=== PATIENT | male | born 1955 | race Caucasian/White ===

== ENCOUNTER 2021-02-04 07:34 | Day surgery (SDC) | payer OTHER ==
[2021-02-01 14:38] VITALS: BMI 38.0
[~2021-02-04 07:34] MED LIST: LACTATED RINGERS 1,000 ML IV SCH
--- NOTE | 2021-02-04 07:36 | P.GSHP ---
History of Present Illness H&P Date: 02/04/21 CHIEF COMPLAINT: GERD and colon screen HISTORY OF PRESENT ILLNESS: The patient is a 65-year-old male who presents with gastroesophageal reflux disease and need for colon screen. Upper and lower endoscopy were offered for further evaluation and management. PAST MEDICAL HISTORY: Please see list. PAST SURGICAL HISTORY: Please see list. MEDICATIONS: Please see list. ALLERGIES: Please see list. SOCIAL HISTORY: No illicit drug use FAMILY HISTORY: No reports of Crohn disease or ulcerative colitis. REVIEW OF ORGAN SYSTEMS: CONSTITUTIONAL: No reports of fevers or chills. GI: Denies any blood in stools or constipation. PHYSICAL EXAM: VITAL SIGNS: Stable GENERAL: Well-developed pleasant in no acute distress. HEENT: No scleral icterus. Extraocular movements grossly intact. Moist buccal mucosa. NECK: Supple without lymphadenopathy. CHEST: Unlabored respirations. Equal bilateral excursions. CARDIOVASCULAR: Regular rate and rhythm. Distal 2+ pulses. ABDOMEN: Soft, nondistended. MUSCULOSKELETAL: No clubbing, cyanosis, or edema. ASSESSMENT: 1. Gastroesophageal reflux disease 2. Colon screen. PLAN: 1. Recommend proceeding with an upper and lower endoscopy Past Medical History Past Medical History: Cancer, Diabetes Mellitus, GERD/Reflux, Hyperlipidemia, Hypertension, Memory Impairment, Neurologic Disorder Additional Past Medical History / Comment(s): NEUROPATHY TO BILAT FEET AND FINGERS. PROSTATE CANCER STAGE IV History of Any Multi-Drug Resistant Organisms: None Reported Past Surgical History: Back Surgery, Hernia Repair Additional Past Surgical History / Comment(s): HIATAL HERNIA REPAIR. EGD/COLONOSCOPOY. VASECTOMY Past Anesthesia/Blood Transfusion Reactions: Motion Sickness Smoking Status: Never smoker - Past Family History Father Family Medical History: Cancer Mother Family Medical History: Cancer Medications and Allergies Home Medications Medication Instructions Recorded Confirmed Type Albuterol Sulfate [Proair 1 puff INHALATION Q6H PRN 02/01/21 02/01/21 History Digihaler] Atorvastatin [Lipitor] 40 mg PO DAILY 02/01/21 02/01/21 History Calcium Carbonate/Vitamin D3 1 each PO DAILY 02/01/21 02/01/21 History [Calcium 500 mg Chewable Tablet] Ferrous Sulfate [Feosol] 325 mg PO DAILY 02/01/21 02/01/21 History Furosemide [Lasix] 20 mg PO DAILY PRN 02/01/21 02/01/21 History Insulin Aspart Protam & Aspart 0 unit SQ DAILY PRN 02/01/21 02/01/21 History [NovoLOG MIX 70-30 Flexpen] Insulin NPH Human Isophane 0 units SQ BID PRN 02/01/21 02/01/21 History [NovoLIN N] Leuprolide Acetate [Lupron Depot] 11.25 mg IM Q90D 02/01/21 02/01/21 History Lisinopril [Prinivil] 10 mg PO DAILY 02/01/21 02/01/21 History Metoprolol Succinate (ER) [Toprol 50 mg PO DAILY 02/01/21 02/01/21 History Xl] Omeprazole [PriLOSEC] 40 mg PO DAILY 02/01/21 02/01/21 History Potassium Chloride -Dose Unknw 1 tab PO BID 02/01/21 History Prochlorperazine [Compazine] 10 mg PO Q6H PRN 02/01/21 02/01/21 History ondansetron HCL [Zofran] 8 mg PO Q12HR PRN 02/01/21 02/01/21 History Allergies Allergy/AdvReac Type Severity Reaction Status Date / Time Penicillins Allergy Unknown Verified 02/01/21 14:34 Childhood ranitidine [From Zantac] Allergy DIZZINESS Verified 02/01/21 14:34
[2021-02-04 07:56] VITALS: TEMP 98
[2021-02-04 08:13] LABS: Glucose,Whole Blood 230 mg/dL (75-99)
[2021-02-04] MEDS ORDERED: LIDOCAINE 1% INJ 10MG/ML (20 ML MDV) ONE (08:30)
[2021-02-04] MEDS ORDERED: MIDAZOLAM 2 MG/2 ML VIAL ONE (08:30)
[2021-02-04] MEDS ORDERED: KETAMINE 10 MG/ML 20 ML VIAL ONE (08:30)
[2021-02-04] MEDS ORDERED: PROPOFOL 10 MG/ML 20 ML VIAL IV ONE (08:30)
--- NOTE | 2021-02-04 09:18 | P.PCN ---
Date of Procedure: 02/04/21 Description of Procedure: PREOPERATIVE DIAGNOSIS: Personal history of colon polyps Family history malignant colon polyps Colonoscopy screening Morbid obesity due to excess calories POSTOPERATIVE DIAGNOSIS: Personal history of colon polyps Family history malignant colon polyps Colonoscopy screening OPERATION: Colonoscopy to the ileocecal valve and appendiceal orifice, cecum Colonoscopy with cold forceps biopsy SURGEON: Ana Laura Taylor MD. ANESTHESIA: MAC. INDICATIONS: The patient is an 65-year-old male who presents family history of malignant colon polyps and personal history of colon polyps. Last over colonoscopy 5 years. Benefits and risks were described and informed consent was obtained. DESCRIPTION OF PROCEDURE: The patient had undergone Gatorade MiraLAX prep. The patient had been brought into the operating room and laid in the left lateral decubitus position. After adequate intravenous sedation, the rectum was examined with 2% lidocaine jelly. The prostate fossa was unremarkable. External hemorrhoids were encountered. The rectal tone was within normal limits. No lesions were palpated in the rectal vault. An Olympus colonoscope was advanced until the cecum, ileocecal valve and appendiceal orifice were clearly viewed. The prep was good. Sigmoid diverticulosis was encountered. Colonic polyps were found and removed. No evidence of focal colitis was found. Retroflexion of the scope demonstrated grade 3 internal hemorrhoids without active bleeding or inflammation. The colon was desufflated. The patient had tolerated the procedure well. Withdrawal time was over 6 minutes. FINDINGS: Aronchick preparation quality scale 2 (1-5) Internal hemorrhoids, grade 3 External hemorrhoids, grade 2. 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 No focal colitis. RECOMMENDATIONS: Repeat colonoscopy in 5 years, 2025 Plan - Discharge Summary Discharge Rx Participant: No New Discharge Prescriptions: Continue Ferrous Sulfate [Iron (65 MG Elemental)] 325 mg PO DAILY ondansetron HCL [Zofran] 8 mg PO Q12HR PRN PRN Reason: Nausea Lisinopril [Prinivil] 10 mg PO DAILY Atorvastatin [Lipitor] 40 mg PO DAILY Prochlorperazine [Compazine] 10 mg PO Q6H PRN PRN Reason: Nausea Albuterol Sulfate [Proair Digihaler] 1 puff INHALATION Q6H PRN PRN Reason: Wheezing Insulin Aspart Protam & Aspart [NovoLOG MIX 70-30 Flexpen] 0 unit SQ DAILY PRN PRN Reason: TO SCALE Calcium Carbonate/Vitamin D3 [Calcium 500 mg Chewable Tablet] 1 each PO DAILY Omeprazole [PriLOSEC] 40 mg PO DAILY Furosemide [Lasix] 20 mg PO DAILY PRN PRN Reason: Edema Metoprolol Succinate (ER) [Toprol XL] 50 mg PO DAILY Potassium Chloride -Dose Unknw 1 tab PO BID Leuprolide Acetate [Lupron Depot] 11.25 mg IM Q90D Insulin NPH Human Isophane [NovoLIN N] 0 units SQ BID PRN PRN Reason: TO SCALE Discharge Medication List Albuterol Sulfate [Proair Digihaler] 1 puff INHALATION Q6H PRN 02/01/21 [History] Atorvastatin [Lipitor] 40 mg PO DAILY 02/01/21 [History] Calcium Carbonate/Vitamin D3 [Calcium 500 mg Chewable Tablet] 1 each PO DAILY 02/01/21 [History] Ferrous Sulfate [Iron (65 MG Elemental)] 325 mg PO DAILY 02/01/21 [History] Furosemide [Lasix] 20 mg PO DAILY PRN 02/01/21 [History] Insulin Aspart Protam & Aspart [NovoLOG MIX 70-30 Flexpen] 0 unit SQ DAILY PRN 02/01/21 [History] Insulin NPH Human Isophane [NovoLIN N] 0 units SQ BID PRN 02/01/21 [History] Leuprolide Acetate [Lupron Depot] 11.25 mg IM Q90D 02/01/21 [History] Lisinopril [Prinivil] 10 mg PO DAILY 02/01/21 [History] Metoprolol Succinate (ER) [Toprol XL] 50 mg PO DAILY 02/01/21 [History] Omeprazole [PriLOSEC] 40 mg PO DAILY 02/01/21 [History] Potassium Chloride -Dose Unknw 1 tab PO BID 02/01/21 [History] Prochlorperazine [Compazine] 10 mg PO Q6H PRN 02/01/21 [History] ondansetron HCL [Zofran] 8 mg PO Q12HR PRN 02/01/21 [History] Follow up Appointment(s)/Referral(s): Ana Laura Taylor MD [STAFF PHYSICIAN] - 08/05/21 Patient Instructions/Handouts: Hiatal Hernia (DC), Colorectal Polyps (DC), Diverticulosis Diet (GEN), Diverticulosis (DC) Activity/Diet/Wound Care/Special Instructions: Repeat colonoscopy in 5 years, 2025 Discharge Disposition: HOME SELF-CARE
--- NOTE | 2021-02-04 09:20 | P.PCN ---
Date of Procedure: 02/04/21 Description of Procedure: PREOPERATIVE DIAGNOSIS: Gastroesophageal reflux disease. Morbid obesity. POSTOPERATIVE DIAGNOSIS: Morbid obesity. Gastritis. Gastroesophageal reflux disease. Diaphragmatic hiatal hernia Duodenal diverticulum OPERATION: Esophagogastroduodenoscopy with biopsies along antrum. SURGEON: Ana Laura Taylor MD ANESTHESIA: MAC. INDICATIONS: The patient is a 65-year-old male who presents with a history of reflux disease. Benefits and risks of the procedure were described. Informed consent was obtained. DESCRIPTION: The patient was brought into the endoscopy suite and laid in the left lateral decubitus position. An Olympus gastroscope was passed along the posterior oropharynx down to the distal esophagus where the squamocolumnar junction was encountered at 37 cm from the incisors. The stomach was entered and no bile reflux was found. Additional findings are listed below. Biopsies with cold forceps were obtained of the antrum. The first through third portion of the duodenum was examined with duodenal diverticulum found along the second portion of the duodenum. Retroflexion of the scope confirmed Hill grade 3 lower esophageal valve. The squamocolumnar junction demonstrated LA grade B erosive esophagitis. The stomach was desufflated. The patient tolerated the procedure well. FINDINGS: Squamocolumnar junction 37 cm from the incisors. Diaphragmatic hiatus at 40 cm. Hiatal hernia, 3 cm Hill grade 3 lower esophageal valve. LA grade B erosive esophagitis. No active duodenitis. Chronic gastritis RECOMMENDATIONS: Upper endoscopy as needed.
[2021-02-04 09:27] VITALS: BP 142/91; PULSE 101; RESP 18
== END 2021-02-04 09:48 | disposition home or self-care (01) ==
LOC: ORWHC2ENDO 07:34
PROVIDERS: ATTEND Surgery Plastic and Reconstructive Surgery
DX: K29.50 Unspecified chronic gastritis without bleeding (principal); K57.10 Diverticulosis of small intestine without perforation or abscess without bleeding; K44.9 Diaphragmatic hernia without obstruction or gangrene; K21.9 Gastro-esophageal reflux disease without esophagitis; I10 Essential (primary) hypertension; E78.5 Hyperlipidemia, unspecified; D12.3 Benign neoplasm of transverse colon; E11.9 Type 2 diabetes mellitus without complications; E66.01 Morbid (severe) obesity due to excess calories; Z79.4 Long term (current) use of insulin; Z83.71 Family history of colonic polyps; Z88.0 Allergy status to penicillin; Z79.899 Other long term (current) drug therapy; Z80.0 Family history of malignant neoplasm of digestive organs
CPT/HCPCS: 45380; 43239; 88305; J2250; J2001; J2704